=== PATIENT | female | born 1970 | race Native Hawaiian/Other Pacific Islander ===

== ENCOUNTER 2019-12-09 20:50 | Emergency (ER) | payer OTHER ==
[~2019-12-09] VITALS: Ht 177.8 cm; Wt 102.1 kg
[2019-12-10 00:33] LABS: POTASSIUM 3.2 mmol/L (3.6-5.2)
[2019-12-10 00:34] LABS: PLATELET COUNT 200 K/uL (152-353)
[2019-12-10] MEDS ORDERED: MONT10TA PO (11:26)
[2019-12-10] MEDS ORDERED: MOBIC15 MG PO (11:27)
[2019-12-10] MEDS ORDERED: BUSPIRONE7.5 MG PO (11:28)
[2019-12-10] MEDS ORDERED: DULO60CA2 PO (11:28)
[2019-12-10] MEDS ORDERED: TRAMADOL HYDROC50 MG PO (11:28)
[2019-12-10] MEDS ORDERED: HYDR25TA60 PO (11:29)
[2019-12-10] MEDS ORDERED: NABU750T PO (11:31)
[2019-12-10] MEDS ORDERED: CYAN10009 IM (11:33)
[2019-12-10 12:00] VITALS: TEMP 98.2
[2019-12-10 14:02] LABS: PLATELET COUNT 190 K/uL (152-353)
[2019-12-10 14:05] LABS: POTASSIUM 4.4 mmol/L (3.6-5.2)
[2019-12-10 17:15] VITALS: BP 142/88
== END 2019-12-10 17:15 | disposition other institution (70) ==
LOC: ED 20:50 → EDBD 20:50 → ED 12-10 17:15
PROVIDERS: Emergency Medicine; Hospitalist
DX: R45.851 Suicidal ideations (principal); F28 Other psychotic disorder not due to a substance or known physiological condition; Z04.6 Encounter for general psychiatric examination, requested by authority
CPT/HCPCS: 80048; 80053; 80307; 80329; 81000; 81025; 85027; 93005; 96372; 99285; J1200; J1630; J2060